=== PATIENT | male | born 1995 | race Caucasian/White ===

== ENCOUNTER 2020-02-14 18:21 | Emergency (ER) | payer BC ==
[2020-02-14 18:35] VITALS: TEMP 98.4
[2020-02-14] MEDS ORDERED: oxyCODONE-APAP 7.5-325MG 1 EACH TAB PO STA (18:52)
--- NOTE | 2020-02-14 18:57 | ED ---
General Adult HPI - General Chief complaint: Extremity Injury, Lower Stated complaint: lt leg injury Time Seen by Provider: 02/14/20 18:46 Source: patient Mode of arrival: ambulatory Limitations: no limitations - History of Present Illness Initial comments: Dictation was produced using [employer] dictation software. please excuse any grammatical, word or spelling errors. This patient was cared for during a federal and state declared state of emergency secondary to Covid 19 Chief Complaint: 24-year-old male presents with popliteal pain History of Present Illness: 24-year-old male he currently belongs to [email or web address]. He was running around third base when he felt a pop behind his left knee. Patient states that after he felt the injury he was not able to stand up. Patient complains that his pain is worse with flexion at the knee. Denies any numbness or paresthesias of the left lower extremity. The ROS documented in this emergency department record has been reviewed and confirmed by me. Those systems with pertinent positive or negative responses have been documented in the HPI. All other systems are other negative and/or noncontributory. PHYSICAL EXAM: General Impression: Alert and oriented x3, not in acute distress HEENT: Normocephalic atraumatic, extra-ocular movements intact, pupils equal and reactive to light bilaterally, mucous membranes moist. Cardiovascular: Heart regular rate and rhythm Chest: Able to complete full sentences, no retractions, no tachypnea Abdomen: abdomen soft, non-tender, non-distended, no organomegaly Musculoskeletal: Pulses present and equal in all extremities, no peripheral edema Left lower extremity: No knee effusion, patella is in-line, tenderness over the left distal insertion of the hamstring. No numbness tingling or paresthesias to the left foot. DP intact. Pain elicited with left knee flexion Motor: no focal deficits noted Neurological: CN II-XII grossly intact, no focal motor or sensory deficits noted Skin: Intact with no visualized rashes Psych: Normal affect and mood ED course: 24-year-old male presents with popliteal pain. 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 Ends upon arrival are within acceptable limits. Patient does not have any knee effusion. Considering the location of his pain there is concern for hamstring tendon injury. There is some concern of rupture. Patient placed in knee immobilizer. Knee x-ray is unremarkable. Patient given referral to orthopedic surgery. - Related Data Previous Rx's Medication Instructions Recorded HYDROcodone/APAP 5-325MG [[place] 1 tab PO Q6HR PRN 3 Days #12 tab 02/14/20 5-325] Allergies Allergy/AdvReac Type Severity Reaction Status Date / Time No Known Allergies Allergy Verified 02/14/20 18:32 Review of Systems ROS Statement: Those systems with pertinent positive or pertinent negative responses have been documented in the HPI. ROS Other: All systems not noted in ROS Statement are negative. Past Medical History Past Medical History: No Reported History History of Any Multi-Drug Resistant Organisms: None Reported Past Surgical History: Appendectomy Past Psychological History: No Psychological Hx Reported Smoking Status: Light tobacco smoker Past Alcohol Use History: None Reported Past Drug Use History: None Reported General Exam Limitations: no limitations Course Vital Signs 02/14/20 18:32 Temperature 98.4 F Pulse Rate 93 Respiratory 16 Rate Blood Pressure 145/88 O2 Sat by Pulse 98 Oximetry Disposition Clinical Impression: Hamstring injury Disposition: HOME SELF-CARE Condition: Good Instructions (If sedation given, give patient instructions): Hamstring Injury (ED) Prescriptions: HYDROcodone/APAP 5-325MG [[place] 5-325] 1 tab PO Q6HR PRN 3 Days #12 tab PRN Reason: Severe Pain Is patient prescribed a controlled substance at d/c from ED?: Yes If prescribed controlled substance>3 days was MAPS reviewed?: Prescribed <3 Days Referrals: Gregg Smith MD [STAFF PHYSICIAN] - 1-2 days Time of Disposition: 18:57
[2020-02-14] MEDS ORDERED: ACET/COD 300 MG/30 MG STARTER PACK 6 TAB BTL PO STA (19:06)
--- NOTE | 2020-02-14 19:16 | XR ---
EXAMINATION TYPE: XR knee complete LT DATE OF EXAM: 02/14/2020 COMPARISON: NONE HISTORY: Pain. Fall. TECHNIQUE: 3 views FINDINGS: I see no fracture nor dislocation. Joint spaces are normal. There is no sign of joint effus ion. There are no pathologic calcifications. There is no evidence of focal bone destruction. IMPRESSION: Negative left knee exam. No fracture.
[2020-02-14 19:40] VITALS: BP 149/98; PULSE 85; RESP 19
== END 2020-02-14 19:40 | disposition home or self-care (01) ==
LOC: EC 18:21
DX: S89.92XA Unspecified injury of left lower leg, initial encounter (principal); F17.210 Nicotine dependence, cigarettes, uncomplicated; X58.XXXA Exposure to other specified factors, initial encounter; Y93.02 Activity, running
CPT/HCPCS: 73562; 99283; L1830 ×2